=== PATIENT | male | born 1945 | race Caucasian/White ===

== ENCOUNTER 2018-11-21 18:31 | Emergency (ER) | payer OTHER ==
[2018-11-21] MEDS: METOCLOPRAMIDE 10 MG INJ IM (19:58)
== END 2018-11-21 21:15 | disposition home or self-care (01) ==
LOC: FTE 18:31
DX: R06.6 Hiccough (principal)
CPT/HCPCS: 71046; 93005; 96372; 99284-25

== ENCOUNTER 2018-11-22 23:56 | Emergency (ER) | payer OTHER ==
[2018-11-23] MEDS: CHLORPROMAZINE 25 MG INJ IM (01:33)
== END 2018-11-23 02:00 | disposition home or self-care (01) ==
LOC: FTE 23:56
DX: R06.6 Hiccough (principal)
CPT/HCPCS: 93005; 96372; 99284-25